=== PATIENT | male | born 1960 ===

== ENCOUNTER 2019-03-09 07:31 | Day surgery (SDC) | payer BC ==
[~2019-03-09 07:31] MED LIST: Buffered Lidocaine 1% SYRIN* 1 ML/SYRINGE INTRADERM ONE; Famotidine IV* 10 MG/ML 2 ML (20 mg) IV ONE; Famotidine IV* 10 MG/ML 2 ML (20 mg) ONE; Lactated Ringers 1000 ML Bag* 1,000 ML IV SCH
[2019-03-09] MEDS ORDERED: ceFAZolin 2 GM PREMIX in ORs 2 GM/50 ML BAG ONE (07:43)
[2019-03-09] MEDS ORDERED: Midazolam* 1 MG/ML 5 ML VIAL (5 MG) ONE (07:57)
[2019-03-09] MEDS ORDERED: Bupivacaine 0.25% SDV* 30 ML ONE (09:00)
[2019-03-09] MEDS ORDERED: DiMENhydriNATE IV* 50 MG/ML VIAL IV PUSH PRN (09:06)
[2019-03-09] MEDS ORDERED: oxyCODONE TAB* 5 MG TAB PO PRN (09:06)
[2019-03-09] MEDS ORDERED: Naloxone* 0.4 MG/ML 1 ML VIAL IV PRN (09:06)
[2019-03-09] MEDS ORDERED: Acetaminophen TAB* 325 MG PO PRN (09:06)
[2019-03-09] MEDS ORDERED: fentaNYL* 50 MCG/ML 2 ML VIAL (100 MCG VIAL) ONE (09:23)
[2019-03-09] MEDS ORDERED: Dexamethasone IV* 4 MG/ML 1 ML (4 MG) ONE (09:40)
[2019-03-09] MEDS ORDERED: Ondansetron INJ* 2 MG/ML VIAL ONE (09:40)
[2019-03-09] MEDS ORDERED: Ketorolac INJ* 30 MG/ML 1 ML VIAL ONE (09:40)
[2019-03-09] MEDS ORDERED: Propofol* 10 MG/ML 20 ML BTL ONE (09:40)
[2019-03-09] MEDS ORDERED: Lidocaine 2% PF * 5 ML VIAL ONE (09:40)
[2019-03-09 12:20] VITALS: BP 132/81
--- NOTE | 2019-03-10 02:27 | OP ---
DATE OF OPERATION: 03/09/19 - [facility] DATE OF : 56 SURGEON: Jakub Hua MD PLASTICS BENCH MECHANIC: JO-ANN Li ANESTHESIOLOGIST: Dr. Corrigan. ANESTHESIA: General. 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 OPERATIVE PROCEDURE: Right middle finger proximal interphalangeal joint fusion with distal radius bone graft. 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 The small finger is still functioning okay , the middle finger is painful and hardly has any motion. We talked about treatment options, he wished to proceed. ESTIMATED BLOOD LOSS: 2 mL. COMPLICATIONS: None. FINDINGS: See above and below. DESCRIPTION OF PROCEDURE: Mr. Roach was seen in the preoperative holding area. The correct site, side, and procedures were identified. We came back to the operating room where the arm was prepped and draped in the usual fashion and a time- out was performed. The arm was exsanguinated with the Esmarch and the tourniquet was inflated. I made a curvilinear incision over the dorsum of the finger. Dissection was carried down. The extensor tendon was incised longitudinally. The collateral ligaments were released. The joint was booked open. The subchondral sclerotic bone was all excised. I trimmed down the radial condyle a bit, so that I could get much better apposition as it was seen in significant ulnar deviation, so the radial condyle was much longer than the ulnar condyle. Once I had everything nicely opposed, I provisionally pinned it in place with one traversing 1.0 mm K-wire. I then went ahead and turned my attention to harvesting the distal radius bone graft and made an incision just proximal to the Sary's tubercle. Dissection was carried down. Subperiosteal dissection exposed the bone. I used the osteotome to open up the cortical window. I then harvested the cancellous bone autograft. That wound was then irrigated out and closed with 4-0 nylon suture. I then went back up to the finger and packed significant amount of bone graft into the fusion site. I backed up the K-wire to do this. I opposed the joint and provided maximal compression as we readvanced the K-wire. I then brought in my Synthes 1.5 mm straight plate off the variable angle handset, this had been contoured to the appropriate angle of about 40 degrees. The plate was then placed into place and secured distally. Once I had secured it distally, I backed to the K-wire and held maximal compression as I placed the proximal screw. All the remainder of the distal and cortical screws were placed. The mini C-arm fluoroscopic imaging looked great. The wound was irrigated out. The extensor tendon was repaired with 5-0 Prolene suture with the knots buried. Skin was closed with 4-0 nylon suture. The wounds were dressed and a plaster splint was applied. He was taken to the recovery room in stable condition. [id number]/[facility] #: [id number] FERNANDO
== END 2019-03-09 12:12 | disposition home or self-care (01) ==
LOC: OREAST 07:31
PROVIDERS: ATTEND Orthopaedic Surgery Hand Surgery
DX: M19.041 Primary osteoarthritis, right hand (principal)
CPT/HCPCS: 76000; C1713; C1776; J0690; J1100; J1885; J2250; J2405; J2704; J3010; J3490